=== PATIENT | male | born 2000 | race Two or more races ===

== ENCOUNTER 2021-07-30 15:17 | Emergency (ER) | payer MEDICAID, SELFPAY ==
--- NOTE | ~2021-07-30 | XR_ITS ---
EXAMINATION: XR CHEST CLINICAL INFORMATION: Chest pain COMPARISON: November 13, 2017 TECHNIQUE: Frontal view of the chest was obtained. FINDINGS: No significant abnormality is noted involving the heart, lungs, mediastinum, bony thorax or soft tissues. XR/XR chest 1V IMPRESSION: No acute disease.
[2021-07-30 15:37] VITALS: BP 110/59; PULSE 76; RESP 18; TEMP 36.8; O2SAT 100; BMI 20.9
--- NOTE | 2021-07-30 15:43 | ECG_ITS ---
Test Reason : CHEST PAIN Blood Pressure : / mmHG Vent. Rate : 066 BPM Atrial Rate : 066 BPM P-R Int : 162 ms QRS Dur : 102 ms QT Int : 348 ms P-R-T Axes : 069 044 064 degrees QTc Int : 364 ms Normal sinus rhythm Intra-ventricular conduction delay Otherwise normal ECG Heart rate has increased Referred By: Generic ED Physician Electronically Signed By:CHATA TOWNSEND MD
[2021-07-30 16:34] LABS: MANUAL DIFF FLAG NO
[2021-07-30 16:35] LABS: Basophils Percent Auto 0.7 % (0-2); Eosinophils Absolute Auto 0.1 X10*3/uL (0.0-0.4); Eosinophils Percent Auto 2.2 % (0-4); Hematocrit 37.9 % (42-52); Hemoglobin 12.7 g/dl (14.0-18.0); Imm Gran Abs Auto 0.01 X10*3/uL (0.00-0.03); Imm Gran Pct Auto 0.2 % (0.0-0.4); Lymphocytes Absolute Auto 2.3 X10*3/uL (1.2-4.9); Lymphocytes Percent Auto 50.1 % (20-40); Mean Corpuscular HGB Conc 33.5 g/dl (31.0-36.0); Mean Corpuscular Hemoglobin 31.3 pg (27.0-33.0); Mean Corpuscular Volume 93.3 fL (80-98); Mean Platelet Volume 9.7 fL (9.4-12.4); Monocytes Absolute Auto 0.4 X10*3/uL (0.1-1.2); Monocytes Percent Auto 8.3 % (2-11); Neutrophils Absolute Auto 1.8 X10*3/uL (2.0-8.3); Neutrophils Percent Auto 38.5 % (45-73); Platelet Count 184 X10*3/uL (160-400); Red Blood Count 4.06 X10*6/uL (4.60-5.80); Red Cell Distribution Width 12.7 % (11.0-16.0); White Blood Count 4.6 X10*3/uL (4.8-10.8)
[2021-07-30 16:47] LABS: Anion Gap 12 (12-20); Blood Urea Nitrogen 8 mg/dL (9-16); Calcium 9.5 mg/dL (8.4-10.2); Carbon Dioxide 28 mmol/L (22-29); Chloride 105 mmol/L (96-108); Creatinine Clr Calc Pharmacy 93.4; Estimated Glomerular Filt Rate > 60; Glucose Random 71 mg/dL (60-115); Potassium 3.8 mmol/L (3.3-5.1); Sodium 141 mmol/L (135-145)
[2021-07-30 16:56] LABS: Glucose, Whole Blood 78 mg/dL (60-115)
--- NOTE | 2021-07-30 16:57 | ED.CHESTPAIN ---
HPI - Chest Pain General Chief Complaint: Chest Pain Stated Complaint: dizziness Time Seen by Provider: 07/30/21 18:16 Source: patient Mode of arrival: ambulatory Limitations: no limitations History of Present Illness HPI narrative: 20-year-old male with no past medical history presents to the ED for multiple complaints. Patient states for the past 2 years he has been having intermittent chest pain on the left side without any nausea or shortness of breath. partner states patient has this at least twice per week. She thinks may be due to stress. Patient also states he he works 6 days a week 10 hours began at 04:00 without any breakfast and at that time will have a headache and feels slightly dizzy but will resolve after having some soda. Patient states only eating cookies. Patient states had headache today also without eating much while working since 04:00am and after eating he felt better and headache improved significantly. Patient denies any eye pain or present eye blurry vision. Patient states this past Tuesday when he had the usual headache with lightheaded due to not eating. Patient denies any pleuritic chest pain, swelling of lower extremities, calf pain, coughing up blood, fever, chills, recent long travel, recent surgery, history of blood clots, any estrogen hormonal use. Patient is vaccinated against COVID-19 virus. Patient denies any slurred speech, loss of vision, paralysis of extremities,or facial droop. Related Data Allergies Allergy/AdvReac Type Severity Reaction Status Date / Time No Known Drug Allergies Allergy Mild NONE Verified 07/30/21 15:35 [NO KNOWN DRUG ALLERGIES] Review of Systems Review of Systems: Yes Unobtainable due to mental status Constitutional: Constitutional: Reports as per HPI and Reports no additional constitutional complaints Eyes: Eyes: Reports as per HPI and Reports no additional eye complaints ENT: Reports system reviewed and no additional complaints, except as documented and Reports as per HPI Cardiovascular: Cardiovascular: Reports as per HPI and Reports no additional cardiovascular complaints Respiratory: Respiratory: Reports as per HPI and Reports no additional respiratory complaints Gastrointestinal: Gastrointestinal: Reports as per HPI and Reports no additional gastrointestinal complaints Genitourinary: Genitourinary: Reports no additional male genitourinary complaints and Reports as per HPI Musculoskeletal: Musculoskeletal: Reports no additional musculoskeletal complaints and Reports as per HPI Integumentary/Breasts: Skin/Breast: Reports system reviewed and no additional complaints, except as docu and Reports as per HPI Neurologic: Reports system reviewed and no additional complaints, except as documented and Reports as per HPI Psychiatric: Psychiatric: Reports no additional psychiatric complaints and Reports as per HPI [facility] Past Medical History Medical History (Updated 07/30/21 @ 17:57 by CONNOR Pierre) Acute insomnia Social History Social History Alcohol intake: never Patient Tobacco Use Status: Never used Tobacco Use of substances other than those prescribed or required for medical reasons: No Advance Directives: No Advance Directives Information Provided: Yes Physical Exam Vital Signs: Vital Signs: Last Vital Signs Temp 98.3 F 07/30/21 15:37 Pulse 70 07/30/21 18:29 Resp 16 07/30/21 18:29 BP 113/57 L 07/30/21 18:29 Pulse Ox 100 07/30/21 15:37 Body Mass Index 20.9 Const: General: cooperative, healthy appearing, comfortable, no acute distress, well developed, alert and awake Orientation/consciousness: patient oriented x3 HENMT: Head: Yes normal to inspection, Yes No palpable skull fracture present, Yes normocephalic, Yes atraumatic, No abrasion, No Acrocyanosis present, No Lee's sign, No contusion, No cranial bruits, No hematoma, No laceration, No occipital foramen tenderness, No palpable skull fracture, No raccoon eyes, No scalp lesion, No scalp tenderness, No Temporal artery tenderness present and No periorbital ecchymosis Eyes: Other: negtive photophobia. Negative for erythema of conjunctival or scleral. Negative for clot illness of higher. Patient presently denies any eye pain. Neck: Neck: Yes normal visual inspection, Yes full ROM, Yes no lymphadenopathy, Yes no meningeal signs, Yes trachea midline, Yes supple and No tender Chest: Chest palpation & inspection: normal inspection of the chest and normal palpation of entire chest wall Resp: Effort & Inspection: normal respiratory effort and able to speak in complete sentences Auscultation: clear to auscultation bilaterally Cardio: Jugular venous distension: no JVD Heart sounds: S1 normal heart sound present and S2 normal heart sound present GI: Inspection: Yes normal to inspection and No abdominal wall ecchymosis Palpation (GI): Soft to palpation, not firm, nontender, no guarding and not rigid : General: No CVA tenderness and Yes no CVA tenderness Back/Spine/Pelvis: Back: no CVA tenderness, No CVA tenderness and No back tenderness Skin: General skin exam: no rashes or lesions noted and elasticity normal Neuro: Other: Negative facial droop. Negative slurred speech. All extremities equal strength 5+. [id number] rapid hand movement intact. Negative Romberg. Negative pronator drift. General: patient oriented x3, gait normal, no meningeal signs and CN's II-XI intact bilaterally Cranial nerves: Yes CN's II-XII intact bilaterally Extrem: General: Yes normal to inspection and Yes full ROM Psych: Appearance: grossly normal, well kempt and not disheveled Course Course Course Narrative: Patient was in a rapid medical screening and had medical evaluation. Reevaluation(s) Reevaluation #1: EKG normal. Troponin negative. Chest x-ray normal. Electrolytes are normal. CBC normal. Patient is not hypoglycemic. No indication for head CT scan. Negative for any neuro deficits. Patient presently denies any headache. Not suspecting temporal arteritis, glaucoma, conjunctivitis, or any corneal abrasion. Patient presents not have any eye pain. Patient is safe for discharge. Symptoms due to exertion and stress. Patient given days off informed to follow-up with primary care provider. Suspecting PE. Perc score 0. Heart score 0. Visual acuity 20/20 in both eyes. Time: 17:52 MDM - Chest Pain MDM Narrative Medical decision making narrative: Atypical chest pain. Exertion. Fatigue Lab Data Result diagrams: 07/30/21 16:27 07/30/21 16:27 Labs: Lab Results 07/30/21 07/30/21 07/30/21 Range/Units 16:27 16:27 16:27 WBC 4.6 L (4.8-10.8) X10*3/uL RBC 4.06 L (4.60-5.80) X10*6/uL Hgb 12.7 L (14.0-18.0) g/dl Hct 37.9 L (42-52) % MCV 93.3 (80-98) fL MCH 31.3 (27.0-33.0) pg MCHC 33.5 (31.0-36.0) g/dl RDW 12.7 (11.0-16.0) % Plt Count 184 (160-400) X10*3/uL MPV 9.7 (9.4-12.4) fL Immature Gran % (Auto) 0.2 (0.0-0.4) % Neut % (Auto) 38.5 L (45-73) % Lymph % (Auto) 50.1 H (20-40) % Thayer % (Auto) 8.3 (2-11) % Eos % (Auto) 2.2 (0-4) % Baso % (Auto) 0.7 (0-2) % Lymph # (Auto) 2.3 (1.2-4.9) X10*3/uL Thayer # (Auto) 0.4 (0.1-1.2) X10*3/uL Eos # (Auto) 0.1 (0.0-0.4) X10*3/uL Baso # (Auto) 0.0 (0.0-0.2) X10*3/uL Abs Immat Gran (auto) 0.01 (0.00-0.03) X10*3/uL Absolute Neuts (auto) 1.8 L (2.0-8.3) X10*3/uL Absolute Nucleated RBC 0.000 (0.0-0.012) X10*3/uL Nucleated RBC % (auto) 0.0 (0.0-0.2) /100WBC Sodium 141 (135-145) mmol/L Potassium 3.8 (3.3-5.1) mmol/L Chloride 105 (96-108) mmol/L Carbon Dioxide 28 (22-29) mmol/L Anion Gap 12 (12-20) BUN 8 L (9-16) mg/dL Creatinine 1.13 (0.5-1.4) mg/dL Estim Creat Clear Calc 93.4 Estimated GFR > 60 POC Glucose (60-115) mg/dL Random Glucose 71 (60-115) mg/dL Calcium 9.5 (8.4-10.2) mg/dL Troponin I High Sens < 3.5 (<3.5-35.0) ng/L 07/30/21 Range/Units 16:52 WBC (4.8-10.8) X10*3/uL RBC (4.60-5.80) X10*6/uL Hgb (14.0-18.0) g/dl Hct (42-52) % MCV (80-98) fL MCH (27.0-33.0) pg MCHC (31.0-36.0) g/dl RDW (11.0-16.0) % Plt Count (160-400) X10*3/uL MPV (9.4-12.4) fL Immature Gran % (Auto) (0.0-0.4) % Neut % (Auto) (45-73) % Lymph % (Auto) (20-40) % Thayer % (Auto) (2-11) % Eos % (Auto) (0-4) % Baso % (Auto) (0-2) % Lymph # (Auto) (1.2-4.9) X10*3/uL Thayer # (Auto) (0.1-1.2) X10*3/uL Eos # (Auto) (0.0-0.4) X10*3/uL Baso # (Auto) (0.0-0.2) X10*3/uL Abs Immat Gran (auto) (0.00-0.03) X10*3/uL Absolute Neuts (auto) (2.0-8.3) X10*3/uL Absolute Nucleated RBC (0.0-0.012) X10*3/uL Nucleated RBC % (auto) (0.0-0.2) /100WBC Sodium (135-145) mmol/L Potassium (3.3-5.1) mmol/L Chloride (96-108) mmol/L Carbon Dioxide (22-29) mmol/L Anion Gap (12-20) BUN (9-16) mg/dL Creatinine (0.5-1.4) mg/dL Estim Creat Clear Calc Estimated GFR POC Glucose 78 (60-115) mg/dL Random Glucose (60-115) mg/dL Calcium (8.4-10.2) mg/dL Troponin I High Sens (<3.5-35.0) ng/L ECG Data ECG #1: Interpretation: Normal sinus rhythm. Normal EKG. Ventricular rate 66. DC interval 162. QRS 102. QTC 364. Negative STEMI Discharge Plan Discharge Clinical Impression: Atypical chest pain, Fatigue, Headache Patient Disposition: Home, Self-Care Instructions: Chest Pain (ED), Tension Headache (ED), Fatigue (ED) Additional Instructions: EKG a blood work came back normal and negative for heart attack electrolyte deficiency, or anemia. Chest x-ray negative for pneumonia. Please follow-up with primary care provider. Return to ED for any shortness of breath, coughing up blood, leg swelling, calf pain, fever, chills, abdominal pain, diarrhea, weakness, dizziness, slurred speech, facial droop, paralysis of extremities, loss of vision in the eye, eye pain, change in eye vision, eye redness, worsening headache, chest pain, or any other concerning symptoms. Stand Alone Forms: Work/School Release Interventions: ED Discharge Assessment Last Done: 07/30/21 18:29 Discharge Date/Time: 07/30/21 18:30 Print Language: Sami
[2021-07-30 16:59] LABS: Troponin-I High Sensitivity < 3.5 ng/L (<3.5-35.0)
[2021-07-30 18:29] VITALS: BP 113/57; PULSE 70; RESP 16
== END 2021-07-30 18:30 | disposition home or self-care (01) ==
PROVIDERS: Emergency Provider Emergency Medicine Emergency Medical Services
DX: R07.89 Other chest pain (principal); R53.83 Other fatigue; R51.9 Headache, unspecified
CPT/HCPCS: 36415; 71045; 80048; 82947; 84484; 85025; 93005; 99284

== ENCOUNTER 2022-01-26 16:36 | Outpatient (REF) | payer MEDICAID, SELFPAY ==
--- NOTE | ~2022-01-26 | XR_ITS ---
EXAMINATION: XR CERVICAL SPINE XR THORACIC SPINE XR LUMBAR SPINE CLINICAL INFORMATION: Pain. Worsening radiculopathy. COMPARISON: None TECHNIQUE: Cervical spine 5 views. Thoracic spine 3 views. Lumbar spine 5 views. FINDINGS: CERVICAL SPINE: There is normal cervical lordosis. The vertebral heights, alignment and disc heights are normal. The neural foramina are patent bilaterally. No visible acute fracture, dislocation or subluxation seen. The prevertebral and paravertebral soft tissues are normal. Incidental finding of bilateral C7 cervical ribs. THORACIC SPINE: There is normal thoracic kyphosis. The vertebral heights, alignment and disc heights are normal. There is no visible acute fracture, dislocation or lytic process seen. The paravertebral soft tissues are normal. LUMBAR SPINE: There is normal lumbar lordosis with minimal dextroscoliosis mid dorsal spine. The vertebral heights and alignment are preserved. The disc heights are preserved. No visible acute fracture, dislocation seen. SI joints are symmetrical. No lytic or sclerotic process seen. XR/XR thoracic spine 3V IMPRESSION: Unremarkable cervical spine exam. Unremarkable dorsal spine exam. Mild dextroscoliosis dorsal spine. No lytic or sclerotic process.
--- NOTE | ~2022-01-26 | XR_ITS ---
EXAMINATION: XR CERVICAL SPINE XR THORACIC SPINE XR LUMBAR SPINE CLINICAL INFORMATION: Pain. Worsening radiculopathy. COMPARISON: None TECHNIQUE: Cervical spine 5 views. Thoracic spine 3 views. Lumbar spine 5 views. FINDINGS: CERVICAL SPINE: There is normal cervical lordosis. The vertebral heights, alignment and disc heights are normal. The neural foramina are patent bilaterally. No visible acute fracture, dislocation or subluxation seen. The prevertebral and paravertebral soft tissues are normal. Incidental finding of bilateral C7 cervical ribs. THORACIC SPINE: There is normal thoracic kyphosis. The vertebral heights, alignment and disc heights are normal. There is no visible acute fracture, dislocation or lytic process seen. The paravertebral soft tissues are normal. LUMBAR SPINE: There is normal lumbar lordosis with minimal dextroscoliosis mid dorsal spine. The vertebral heights and alignment are preserved. The disc heights are preserved. No visible acute fracture, dislocation seen. SI joints are symmetrical. No lytic or sclerotic process seen. XR/XR cervical spine 4V IMPRESSION: Unremarkable cervical spine exam. Unremarkable dorsal spine exam. Mild dextroscoliosis dorsal spine. No lytic or sclerotic process.
--- NOTE | ~2022-01-26 | XR_ITS ---
EXAMINATION: XR CERVICAL SPINE XR THORACIC SPINE XR LUMBAR SPINE CLINICAL INFORMATION: Pain. Worsening radiculopathy. COMPARISON: None TECHNIQUE: Cervical spine 5 views. Thoracic spine 3 views. Lumbar spine 5 views. FINDINGS: CERVICAL SPINE: There is normal cervical lordosis. The vertebral heights, alignment and disc heights are normal. The neural foramina are patent bilaterally. No visible acute fracture, dislocation or subluxation seen. The prevertebral and paravertebral soft tissues are normal. Incidental finding of bilateral C7 cervical ribs. THORACIC SPINE: There is normal thoracic kyphosis. The vertebral heights, alignment and disc heights are normal. There is no visible acute fracture, dislocation or lytic process seen. The paravertebral soft tissues are normal. LUMBAR SPINE: There is normal lumbar lordosis with minimal dextroscoliosis mid dorsal spine. The vertebral heights and alignment are preserved. The disc heights are preserved. No visible acute fracture, dislocation seen. SI joints are symmetrical. No lytic or sclerotic process seen. XR/XR lumbar spine 4V min IMPRESSION: Unremarkable cervical spine exam. Unremarkable dorsal spine exam. Mild dextroscoliosis dorsal spine. No lytic or sclerotic process.
== END 2022-01-26 16:37 | disposition home or self-care (01) ==
LOC: HO.XRAY 16:36
PROVIDERS: Absent Provider Internal Medicine; PCP Internal Medicine; Visit Provider Emergency Medicine
DX: M41.125 Adolescent idiopathic scoliosis, thoracolumbar region (principal)
CPT/HCPCS: 72050; 72072; 72110

== ENCOUNTER 2022-02-08 18:11 | Emergency (ER) | payer MEDICAID, SELFPAY ==
[2022-02-08 19:19] VITALS: BP 146/82; PULSE 75; RESP 16; TEMP 36.6; O2SAT 98; BMI 21.1
--- NOTE | 2022-02-08 21:25 | ED.BACK ---
HPI - Back Pain/Injury General Chief Complaint: Back Pain/Injury Stated Complaint: Back pain Time Seen by Provider: 02/08/22 21:25 Source: patient Mode of arrival: ambulatory Limitations: no limitations History of Present Illness HPI Narrative: Patient is a 21 year old male presenting to the emergency department today with mid back pain. Patient states that he was recently diagnosed with scoliosis and is having mid back pain. Patient states that he works a very strenuous job with heavy lifting. Patient denies any dizziness, lightheadedness, abdominal pain, nausea, vomiting, fever, chills, blurry vision, double vision, loss of vision, chest pain, difficulty breathing, shortness of breath, night sweats, pain with urination, increased urinary frequency, increased urinary urgency, blood in his urine or stool, syncope or a near syncopal episode, recent trauma or falls, bowel incontinence, bladder incontinence, bowel retention, bladder retention, or any other complaints at this time. MD elicited complaint: back pain Pertinent past history: prior back pain Onset (ago): day(s) Timing: intermittent Severity: mild Pain scale (0-10): 3 Similar Symptoms Previously: Yes Quality: dull Location: thoracic spine Radiation: none Exacerbating factors: none Relieving factors: none Associated symptoms: denies other symptoms Related Data Previous Rx's Medication Instructions Recorded cyclobenzaprine 10 mg tablet 10 mg PO TID PRN 7 Days #21 tab 02/08/22 Allergies Allergy/AdvReac Type Severity Reaction Status Date / Time No Known Drug Allergies Allergy Mild NONE Verified 07/30/21 15:35 [NO KNOWN DRUG ALLERGIES] Review of Systems Constitutional: Constitutional: Reports no additional constitutional complaints, Denies chills, Denies fever(s) and Denies night sweats Eyes: Eyes: Reports no additional eye complaints, Denies blurry vision, Denies change in vision, Denies diplopia, Denies eye discharge, Denies loss of vision and Denies eye pain ENT: Denies dizziness Cardiovascular: Cardiovascular: Reports no additional cardiovascular complaints, Denies chest pain, Denies lightheadedness, Denies Loss of Consciousness and Denies dyspnea Respiratory: Respiratory: Reports no additional respiratory complaints and Denies dyspnea Gastrointestinal: Gastrointestinal: Reports no additional gastrointestinal complaints, Denies abdominal pain, Denies melena, Denies hematochezia, Denies change in bowel habits and Denies change in stool character Genitourinary: Genitourinary: Reports no additional male genitourinary complaints, Denies hematuria, Denies oliguria, Denies difficulty urinating, Denies dysuria, Denies urinary frequency, Denies urinary hesitancy, Denies urinary incontinence and Denies urinary urgency Musculoskeletal: Musculoskeletal: Reports no additional musculoskeletal complaints, Reports back pain, Denies numbness and Denies tingling Neurologic: Denies dizziness, Denies loss of vision, Denies numbness and Denies tingling Psychiatric: Psychiatric: Reports no additional psychiatric complaints Endocrine: Endocrine: Reports no additional endocrine complaints Hematologic/Lymphatic: Hematologic/Lymphatic: Reports no additional hematologic/lymphatic complaints Allergic/Immunologic: Allergic/Immunologic: Reports no additional allergic/immunologic complaints PMFSH Past Medical History Attestation statement: The following information was validated with the patient. Source: old records reviewed Medical History Acute insomnia Social History Social History Alcohol intake: never Patient Tobacco Use Status: Never used Tobacco Advance Directives: No Advance Directives Information Provided: No Physical Exam Vital Signs: Vital Signs: Last Vital Signs Temp 97.8 F 02/08/22 19:19 Pulse 75 02/08/22 19:19 Resp 16 02/08/22 19:19 BP 146/82 H 02/08/22 19:19 Pulse Ox 98 02/08/22 19:19 BMI result Body Mass Index 21.1 Const: General: cooperative, no acute distress, alert and awake Nutritional Appearance: well nourished Orientation/consciousness: patient oriented x3 Limitations: no limitations HEENT: Head: Yes normal to inspection and Yes atraumatic Ears: hearing grossly normal bilaterally and external ears normal General nose exam: Normal external nose present, no nasal discharge noted and no epistaxis Face and sinus: Yes normal facial exam, No abrasion and No laceration Mouth: Normal oral and palatal mucosa present, no drooling and no muffled voice Eyes: General: appearance normal, both eyes and all related structures Periorbital: periorbital findings normal Eyelids: Yes eyelids normal Conjunctivae: conjunctivae normal Pupils: Equal, round and reactive pupils present EOM: EOMs intact bilaterally Neck: Neck: Yes normal visual inspection, Yes full ROM and Yes no lymphadenopathy Chest: Chest palpation & inspection: normal inspection of the chest Resp: Effort & Inspection: normal respiratory effort and able to speak in complete sentences Auscultation: clear to auscultation bilaterally Cardio: Rate: regular rate Rhythm: regular rhythm GI: Inspection: Yes normal to inspection : General: Yes no CVA tenderness Back/Spine/Pelvis: Back: no CVA tenderness Cervical Spine: normal cervical lordosis and cervical ROM normal Thoracic/Lumbar Spine: thoracic and lumbar spine normal to inspection and thoraco-lumbar ROM normal Pelvis: no pain with anterior-posterior compression Neuro: General: patient oriented x3 and moves all extremities Cranial nerves: Yes Equal, round and reactive pupils present Cognition (Neuro): normal cognition Motor exam (neuro): 5/5 motor strength present throughout Sensory Exam: Normal double simultaneous stimulation for sensation Coordination: [id number] test normal Extrem: General: Yes normal to inspection, Yes full ROM and Yes capillary refill normal Psych: Appearance: grossly normal Mental Status: mental status grossly normal Affect: normal affect Attitude: cooperative Thought process: Normal thought process present Thought content: Normal thought content present Insight: Good insight present (Psych) MDM - Back Pain/Injury MDM Narrative Medical decision making narrative: Patient is a 21 year old male presenting to the emergency department today with thoracic back pain. Patient's physical exam was unremarkable. I explained my physical exam findings to the patient. I answered all questions asked by the patient. Patient received PO Flexeril and IM Toradol which he stated helped his symptoms significantly. I stressed the importance of the patient taking his medication as prescribed. I stressed the importance of the patient following up with his primary care provider and an orthopedist. I stressed the importance of the patient returning to the emergency department immediately if his symptoms were to worsen or if he were to develop any dizziness, shortness of breath, difficulty breathing, chest pain, blurry vision, loss of vision, nausea, vomiting, abdominal pain, fever, chills, back pain, or any other complaints. Patient verbalized agreement and understanding with this treatment plan and discharge. Differential Diagnosis Differential diagnosis: Likely thoracic back pain Medical Records Attestation: I reviewed the patient's medical records. Discharge Plan Discharge Clinical Impression: Thoracic back pain Patient Disposition: Home, Self-Care Instructions: Back Pain (ED) Additional Instructions: Follow up with your primary care provider. Return to the emergency department immediately if your symptoms worsen or if you develop any dizziness, shortness of breath, difficulty breathing, chest pain, blurry vision, loss of vision, nausea, vomiting, abdominal pain, fever, chills, back pain, or any other complaints. Prescriptions: New cyclobenzaprine 10 mg tablet 10 mg PO TID PRN (Reason: muscle spasm) 7 Days Qty: 21 0RF [place]errals: [facility] [place]Provider Group] (Follow up with an orthopedist. ) Jemima Prado NP [Primary Care Provider] - (Follow up with your PCP. ) Stand Alone Forms: Work/School Release Interventions: ED Discharge Assessment Last Done: 02/08/22 21:59 Discharge Date/Time: 02/08/22 22:02 Print Language: Pashto
[2022-02-08] MEDS: Cyclobenzaprine HCl 5 MG TABLET PO (21:54)
== END 2022-02-08 22:02 | disposition home or self-care (01) ==
PROVIDERS: Emergency Provider Internal Medicine; PCP Emergency Medicine
DX: M54.6 Pain in thoracic spine (principal)
CPT/HCPCS: 96372; 99284

== ENCOUNTER 2022-04-25 20:39 | Emergency (ER) | payer MEDICAID, SELFPAY ==
--- NOTE | ~2022-04-25 | XR_ITS ---
EXAMINATION: XR HAND, RIGHT CLINICAL INFORMATION: Pain/infection COMPARISON: None TECHNIQUE: PA, lateral, and oblique views of the right hand. FINDINGS: The bones and soft tissues are normal aside from presence of soft tissue swelling dorsum of the third finger overlying the distal phalanx. No fracture or underlying bony lesion. Alignment is anatomic. Joint spaces are maintained. No erosions or soft tissue calcifications. XR/XR hand RT min 3V IMPRESSION: Soft tissue swelling overlying the distal phalanx of the middle finger. No osseous abnormality.
[2022-04-25 20:54] VITALS: BP 128/76; PULSE 87; RESP 18; TEMP 37.1; O2SAT 99; BMI 21.1
--- NOTE | 2022-04-25 23:34 | ED.SKABFB ---
HPI - Skin/Abscess/Foreign Bdy General Chief complaint: Skin/Abscess/Foreign Body Stated complaint: Finger Infection R Hand Time Seen by Provider: 04/25/22 23:24 Source: patient Mode of arrival: ambulatory Limitations: no limitations History of Present Illness HPI narrative: Patient is a 21 year old male presenting to the emergency department today with an infected left middle finger. Patient states that he noticed some swelling starting by his nail of his left middle finger and it has not gotten better. Patient denies any dizziness, lightheadedness, abdominal pain, nausea, vomiting, fever, chills, blurry vision, double vision, loss of vision, chest pain, difficulty breathing, shortness of breath, back pain, night sweats, pain with urination, increased urinary frequency, increased urinary urgency, blood in his urine or stool, syncope or a near syncopal episode, recent trauma or falls, bowel incontinence, bladder incontinence, bowel retention, bladder retention, or any other complaints at this time. MD complaint: abscess/boil Onset (ago): day(s) (3) Tetanus up to date: yes Severity: mild Severity scale (1-10): 3 Quality: dull Pain Consistency: constant Relieving factors: none Exacerbating factors: none Context: none Associated symptoms: denies other symptoms Treatments prior to arrival: none Related Data Previous Rx's Medication Instructions Recorded cyclobenzaprine 10 mg tablet 10 mg PO TID PRN muscle spasm 7 02/08/22 days #21 tabs cephalexin 500 mg capsule 500 mg PO Q6H 7 days #28 caps 04/25/22 Allergies Allergy/AdvReac Type Severity Reaction Status Date / Time No Known Drug Allergies Allergy Mild NONE Verified 04/25/22 20:54 [NO KNOWN DRUG ALLERGIES] Review of Systems Constitutional: Constitutional: Reports no additional constitutional complaints, Denies chills, Denies fever(s) and Denies night sweats Eyes: Eyes: Reports no additional eye complaints, Denies blurry vision, Denies change in vision, Denies diplopia, Denies eye discharge, Denies loss of vision and Denies eye pain ENT: Denies dizziness Cardiovascular: Cardiovascular: Reports no additional cardiovascular complaints, Denies chest pain, Denies lightheadedness, Denies Loss of Consciousness and Denies dyspnea Respiratory: Respiratory: Reports no additional respiratory complaints and Denies dyspnea Gastrointestinal: Gastrointestinal: Reports no additional gastrointestinal complaints, Denies abdominal pain, Denies melena, Denies hematochezia, Denies change in bowel habits and Denies change in stool character Genitourinary: Genitourinary: Reports no additional male genitourinary complaints, Denies hematuria, Denies oliguria, Denies difficulty urinating, Denies dysuria, Denies urinary frequency, Denies urinary hesitancy, Denies urinary incontinence and Denies urinary urgency Musculoskeletal: Musculoskeletal: Reports no additional musculoskeletal complaints, Denies numbness and Denies tingling Comments: swelling to the left middle finger Neurologic: Denies dizziness, Denies loss of vision, Denies numbness and Denies tingling Psychiatric: Psychiatric: Reports no additional psychiatric complaints Endocrine: Endocrine: Reports no additional endocrine complaints Hematologic/Lymphatic: Hematologic/Lymphatic: Reports no additional hematologic/lymphatic complaints Allergic/Immunologic: Allergic/Immunologic: Reports no additional allergic/immunologic complaints [facility] Past Medical History Attestation statement: The following information was validated with the patient. Source: old records reviewed Medical History Acute insomnia Social History Social History Alcohol intake: never Patient Tobacco Use Status: Never used Tobacco Advance Directives: No Advance Directives Information Provided: Yes Physical Exam Vital Signs: Vital Signs: Last Vital Signs Temp 98.7 F 04/25/22 20:54 Pulse 87 04/25/22 20:54 Resp 18 04/25/22 20:54 BP 128/76 04/25/22 20:54 Pulse Ox 99 04/25/22 20:54 O2 Del Method 04/25/22 20:54 BMI result Body Mass Index 21.1 Const: General: cooperative, no acute distress, alert and awake Nutritional Appearance: well nourished Orientation/consciousness: patient oriented x3 Limitations: no limitations HEENT: Head: Yes normal to inspection and Yes atraumatic Ears: hearing grossly normal bilaterally and external ears normal General nose exam: Normal external nose present, no nasal discharge noted and no epistaxis Face and sinus: Yes normal facial exam, No abrasion and No laceration Mouth: Normal oral and palatal mucosa present, no drooling and no muffled voice Eyes: General: appearance normal, both eyes and all related structures Periorbital: periorbital findings normal Eyelids: Yes eyelids normal Conjunctivae: conjunctivae normal Pupils: Equal, round and reactive pupils present EOM: EOMs intact bilaterally Neck: Neck: Yes normal visual inspection, Yes full ROM and Yes no lymphadenopathy Chest: Chest palpation & inspection: normal inspection of the chest Resp: Effort & Inspection: normal respiratory effort and able to speak in complete sentences Auscultation: clear to auscultation bilaterally Cardio: Rate: regular rate Rhythm: regular rhythm GI: Inspection: Yes normal to inspection Neuro: General: patient oriented x3 and moves all extremities Cranial nerves: Yes Equal, round and reactive pupils present Cognition (Neuro): normal cognition Motor exam (neuro): 5/5 motor strength present throughout Sensory Exam: Normal double simultaneous stimulation for sensation Coordination: [id number] test normal Extrem: Other: swelling to the dorsal aspect of the left middle finger near the nail bed, consistent with a paronychia General: Yes full ROM and Yes capillary refill normal Psych: Appearance: grossly normal Mental Status: mental status grossly normal Affect: normal affect Attitude: cooperative Thought process: Normal thought process present Thought content: Normal thought content present Insight: Good insight present (Psych) MDM - Skin/Abscess/Foreign Bdy MDM Narrative Medical decision making narrative: Patient is a 21 year old male presenting to the emergency department today with swelling to his left middle finger. Patient's physical exam showed a paronychea of the left middle finger. I explained my physical exam findings to the patient. I answered all questions asked by the patient. Patient's finger was incised and drained, without incident. I stressed the importance of the patient taking his medication as prescribed. I stressed the importance of the patient following up with his primary care provider. I stressed the importance of the patient returning to the emergency department immediately if his symptoms were to worsen or if he were to develop any dizziness, shortness of breath, difficulty breathing, chest pain, blurry vision, loss of vision, nausea, vomiting, abdominal pain, fever, chills, back pain, or any other complaints. Patient verbalized agreement and understanding with this treatment plan and discharge. Differential Diagnosis Differential diagnosis: Likely abscess of skin or subcutaneous tissue Medical Records Attestation: I reviewed the patient's medical records. Procedures Abscess I/D Site: other (middle finger) Side (if applicable): left Sedation/analgesia: none Technique: needle aspiration Amount of fluid expressed (mL): 10 Sent for culture/gram staining?: No Packing used?: none Discharge Plan Discharge Clinical Impression: Acute paronychia of finger Patient Disposition: Home, Self-Care Instructions: Paronychia (ED) Additional Instructions: Follow up with your primary care provider. Return to the emergency department immediately if your symptoms worsen or if you develop any dizziness, shortness of breath, difficulty breathing, chest pain, blurry vision, loss of vision, nausea, vomiting, abdominal pain, fever, chills, back pain, or any other complaints. Prescriptions: New cephalexin 500 mg capsule 500 mg PO Q6H 7 Days Qty: 28 0RF No Action cyclobenzaprine 10 mg tablet 10 mg PO TID PRN (Reason: muscle spasm) 7 Days Qty: 21 0RF Referrals: [facility] [Primary Care Provider] - Stand Alone Forms: Work/School Release Interventions: ED Discharge Assessment Last Done: 04/25/22 23:49 Discharge Date/Time: 04/25/22 23:50 Print Language: Kyrgyz
== END 2022-04-25 23:50 | disposition home or self-care (01) ==
PROVIDERS: Emergency Provider Internal Medicine
DX: L03.012 Cellulitis of left finger (principal); Z79.899 Other long term (current) drug therapy
CPT/HCPCS: 10060; 73130; 99282; 99283

== ENCOUNTER 2022-04-29 16:08 | Emergency (ER) | payer MEDICAID, SELFPAY ==
[2022-04-29 17:42] VITALS: BP 108/62; PULSE 83; RESP 16; TEMP 37; O2SAT 100; BMI 21.1
--- NOTE | 2022-04-29 20:44 | ED.EXTPRO ---
HPI - Extremity Problem General Chief complaint: Extremity Problem Stated complaint: finger infection Time Seen by Provider: 04/29/22 20:44 Source: patient Mode of arrival: ambulatory Limitations: no limitations History of Present Illness HPI Narrative: 21-year-old male presenting to the emergency department with complaints of pain to the right middle finger times a week worsening. Patient tells me he was seen here in the emergency department was told he had an infected finger was put on antibiotics, Keflex 500 mg q.6 hours, patient tells me he has been trying to take this as prescribed however he has for gotten a few doses. He reports that his finger appears worse and hurts. He tells me if he does not touch it it does not her however if he touches it hurts. He reports his fingers red and warm. He tells me that yesterday he tried to drain it at home with a sterile needle, he notes that a large amount of blood came out from the area. 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 Patient denies fevers, chills, numbness, tingling, chest pain, shortness of breath, nausea, vomiting, abdominal pain. MD Complaint: extremity pain and extremity swelling Onset (ago): week(s) (1) Pain Consistency: constant Location: right Quality: burning and constant Radiation: none Relieving factors: nothing Exacerbating factors: palpation Associated symptoms: denies other symptoms Related Data Previous Rx's Medication Instructions Recorded cyclobenzaprine 10 mg tablet 10 mg PO TID PRN muscle spasm 7 02/08/22 days #21 tabs cephalexin 500 mg capsule 500 mg PO Q6H 7 days #28 caps 04/25/22 doxycycline hyclate 100 mg capsule 100 mg PO BID 10 days #20 caps 04/29/22 Allergies Allergy/AdvReac Type Severity Reaction Status Date / Time No Known Drug Allergies Allergy Mild NONE Verified 04/29/22 17:45 [NO KNOWN DRUG ALLERGIES] Review of Systems Review of Systems: Constitutional : No Fever, No Chills, Cardiovascular : No Chest Pain, No SOB Respiratory : No Dyspnea Gastrointestinal : No abdominal pain Musculoskeletal : + Joint Swelling Skin : No rash, No skin laceration Neuro : No Weakness, No Numbness Psych : No SI/HI Yes all other systems are reviewed and are negative PMFSH Past Medical History Medical History Acute insomnia Social History Social History Alcohol intake: never Patient Tobacco Use Status: Never used Tobacco Advance Directives: No Advance Directives Information Provided: No Physical Exam Vital Signs: Vital Signs: Last Vital Signs Temp 98.6 F 04/29/22 17:42 Pulse 83 04/29/22 17:42 Resp 16 04/29/22 17:42 BP 108/62 04/29/22 17:42 Pulse Ox 100 04/29/22 17:42 O2 Del Method 04/29/22 17:42 BMI result Body Mass Index 21.1 VSS Appearance: Alert.? Oriented X3.? No acute distress.? Head: Normocephalic, atraumatic, no step-offs or deformities Eyes: Pupils equal, round and reactive to light.? CVS: Normal heart rate and rhythm.? Pulses normal.? Respiratory: No respiratory distress.? Breath sounds normal.? Abdomen: Soft and nontender.? Skin: Skin warm and dry.? Normal skin color.? Normal skin turgor.?+ paronychia to the right middle finger Extremities: No lower extremity edema.? No calf ttp. 5/5 strength to bilateral upper and lower extremities Neuro: Oriented X 3.? No motor deficit.? No sensory deficit. CN 2-12 intact Course Reevaluation(s) Reevaluation #1: A dressing was applied to the area, patient sitting up. Educated on the signs and symptoms and when to return. Comfortable discharge home with strict return precautions Time: 20:50 MDM - Extremity (Nontraumatic) MDM Narrative Medical decision making narrative: 2021 21 yo m presenting w/ worsening paronychia. Physical exam significant for right middle finger paronychia. A small needle was used to drain it in the area, serosanguineous fluid about 4 cc removed from the area. Patient tolerated procedure well. No signs of septic joint, tenosynovitis, unlikely herpetic mauri or felon. Plan at this time is to add doxycycline to patient's antibiotic regimen. A Xeroform dressing will be applied to the area, advised patient to return with new or worsening symptoms and follow-up with his primary care provider. Medical Records Attestation: I reviewed the patient's medical records. Lab Data Attestation: I reviewed the patient's lab results. Critical Care Time Critical Care Time Critical Care Time: No Discharge Plan Discharge Clinical Impression: Paronychia of finger Patient Disposition: Home, Self-Care Instructions: Paronychia (ED), Cellulitis (ED) Additional Instructions: Take your medications as prescribed. If you were prescribed antibiotics today, it is important that you take your medication to their entirety, do not skip any doses, do not finish them early. Follow-up with your primary care provider this week. Return to the emergency department with new or worsening symptoms. Such as fevers, chills, chest pain, shortness of breath, nausea, vomiting, dizziness, headache, vision changes, lethargy In case of emergency call 911 Soak this finger in Epsom salt. Take both antibiotics prescribed to you, Keflex and doxycycline. Prescriptions: New doxycycline hyclate 100 mg capsule 100 mg PO BID 10 Days Qty: 20 0RF No Action cyclobenzaprine 10 mg tablet 10 mg PO TID PRN (Reason: muscle spasm) 7 Days Qty: 21 0RF cephalexin 500 mg capsule 500 mg PO Q6H 7 Days Qty: 28 0RF Referrals: Physician,Unknown J [Primary Care Provider] - 2 days Stand Alone Forms: Work/School Release
== END 2022-04-29 21:46 | disposition home or self-care (01) ==
PROVIDERS: Emergency Provider Emergency Medicine
DX: L03.011 Cellulitis of right finger (principal); Z79.899 Other long term (current) drug therapy
CPT/HCPCS: 10060; 99282; 99283

== ENCOUNTER 2022-07-19 07:05 | Outpatient (REF) | payer MEDICAID, SELFPAY ==
[2022-07-19 08:12] LABS: COVID-19 Test Positive (Negative)
== END 2022-07-19 07:06 | disposition home or self-care (01) ==
LOC: HO.LAB 07:05
PROVIDERS: Visit Provider Internal Medicine
DX: Z20.822 Contact with and (suspected) exposure to COVID-19 (principal)
CPT/HCPCS: 87635; C9803

== ENCOUNTER 2023-08-22 10:11 | Outpatient (REF) | payer MEDICAID, SELFPAY ==
[2023-08-22 11:46] LABS: Hematocrit 39.6 % (42.0-52.0); Hemoglobin 13.3 g/dl (14.0-18.0); Mean Corpuscular HGB Conc 33.6 g/dl (31.0-36.0); Mean Corpuscular Hemoglobin 30.9 pg (27.0-33.0); Mean Corpuscular Volume 91.9 fL (80.0-98.0); Mean Platelet Volume 10.6 fL (9.4-12.4); Platelet Count 199 X10*3/uL (160-400); Red Blood Count 4.31 X10*6/uL (4.60-5.80); Red Cell Distribution Width 12.7 % (11.0-16.0); White Blood Count 4.1 X10*3/uL (4.8-10.8)
[2023-08-22 11:50] LABS: Estimated Average Glucose 105 mg/dL; Hemoglobin A1c % 5.3 % (<6.0)
[2023-08-22 12:30] LABS: TSH reflex Free T4 0.86 uIU/mL (0.32-4.0)
[2023-08-22 12:32] LABS: Anion Gap 9 (12-20)
[2023-08-22 12:37] LABS: Alanine Aminotransferase 16 U/L (0-40); Albumin Level 4.6 g/dL (3.5-5.0); Alkaline Phosphatase 62 U/L (39-117); Aspartate Amino Transferase 19 U/L (5-37); Blood Urea Nitrogen 10 mg/dL (9-16); Calcium 9.2 mg/dL (8.4-10.2); Carbon Dioxide 29 mmol/L (22-29); Chloride 106 mmol/L (96-108); Cholesterol 133 mg/dL (<200); Estimated Glomerular Filt Rate > 60; Glucose Random 90 mg/dL (60-115); HDL Cholesterol 48 mg/dL (>40); LDL Cholesterol Calculated 76 mg/dL (<100); Potassium 3.8 mmol/L (3.3-5.1); Sodium 140 mmol/L (135-145); Total Protein 7.5 g/dL (6.5-8.0); Triglycerides 48 mg/dL (<150)
[2023-08-22 12:57] LABS: CT PCR NOT DETECTED (Not Detect.); NG PCR NOT DETECTED (Not Detect.)
[2023-08-23 03:57] LABS: Syphilis Screen Nonreactive (Nonreactive)
[2023-08-23 04:03] LABS: HBsAGNum1 0.39 S/CO (0.00-0.99); Hepatitis B Surface Antigen Negative (Negative)
[2023-08-23 04:05] LABS: HBS Num1 0.59 mIU/mL (0-7.99); HBc Num1 0.07 S/CO (0.00-0.79); HIV AB/AG Nonreactive (Nonreactive); HIV Num 1 0.06 S/CO (0.00-0.99); Hepatitis B Core Antibody Nonreactive (Nonreactive); ~HepC Num1 0.18 S/CO (0.00-0.79); ~Hepatitis B Surface Antibody NONREACTIVE (Nonreactive); ~Hepatitis C Antibody Nonreactive (Nonreactive)
== END 2023-08-22 10:12 | disposition home or self-care (01) ==
LOC: HO.HHCL 10:11
PROVIDERS: Visit Provider Student in an Organized Health Care Education/Training Program
DX: Z00.00 Encounter for general adult medical examination without abnormal findings (principal)
CPT/HCPCS: 0353U; 36415; 80053; 80061; 83036; 84443; 85027; 86704; 86706; 86780; 86803; 87340; 87389

== ENCOUNTER 2024-01-24 15:59 | Outpatient (REF) | payer MEDICAID, SELFPAY ==
[2024-01-24 17:33] LABS: MANUAL DIFF FLAG NO
[2024-01-24 17:44] LABS: Basophils Percent Auto 0.6 % (0-2); Eosinophils Absolute Auto 0.1 X10*3/uL (0.0-0.4); Eosinophils Percent Auto 3.4 % (0-4); Hematocrit 41.3 % (42.0-52.0); Hemoglobin 13.8 g/dl (14.0-18.0); Lymphocytes Absolute Auto 1.8 X10*3/uL (1.2-4.9); Lymphocytes Percent Auto 51.3 % (20-40); Mean Corpuscular HGB Conc 33.4 g/dl (31.0-36.0); Mean Corpuscular Volume 92.8 fL (80.0-98.0); Mean Platelet Volume 11.2 fL (9.4-12.4); Monocytes Absolute Auto 0.3 X10*3/uL (0.1-1.2); Monocytes Percent Auto 8.5 % (2-11); Neutrophils Absolute Auto 1.3 x10*3/uL (2.0-8.3); Neutrophils Percent Auto 36.2 % (45-73); Platelet Count 178 X10*3/uL (160-400); Red Blood Count 4.45 X10*6/uL (4.60-5.80); Red Cell Distribution Width 12.8 % (11.0-16.0); White Blood Count 3.5 X10*3/uL (4.8-10.8)
[2024-01-24 17:53] LABS: Iron 70 mcg/dL (45-160); Percent Iron Saturation 29 % (15-50); Total Iron Binding Capacity 241 mcg/dL (228-428); Unsaturated Iron Binding 171 ug/dL
[2024-01-24 18:07] LABS: Ferritin 118 ng/mL (20-250)
[2024-01-24 18:21] LABS: Folate 10.3 ng/mL (> or = 4.0); Vitamin B12 299 pg/mL (200-900)
== END 2024-01-24 16:00 | disposition home or self-care (01) ==
LOC: HO.HHCL 15:59
PROVIDERS: Visit Provider Student in an Organized Health Care Education/Training Program
DX: D64.9 Anemia, unspecified (principal)
CPT/HCPCS: 36415; 82607; 82728; 82746; 83540; 85025

== ENCOUNTER 2024-05-09 15:59 | Emergency (ER) | payer OTHER, SELFPAY ==
--- NOTE | ~2024-05-09 | XR_ITS ---
EXAMINATION: XR CHEST CLINICAL INFORMATION: Cough and chest pain. COMPARISON: 07/30/2021 TECHNIQUE: 2 views of the chest were obtained. FINDINGS: The lungs are well expanded. No focal consolidation. No pleural effusion. Cardiac silhouette is unchanged. XR/XR chest 2V IMPRESSION: No acute abnormality.
--- NOTE | 2024-05-09 16:01 | ECG_ITS ---
Test Reason : epigastric pain Blood Pressure : / mmHG Vent. Rate : 091 BPM Atrial Rate : 091 BPM P-R Int : 128 ms QRS Dur : 094 ms QT Int : 320 ms P-R-T Axes : 070 030 047 degrees QTc Int : 393 ms Normal sinus rhythm Normal ECG When compared to the previous EKG of No significant changes seen Referred By: Barb Daniel Electronically Signed By:TRACIE DIXON MD
[2024-05-09 16:02] VITALS: BP 113/61; PULSE 102; RESP 20; TEMP 38.5; O2SAT 99; BMI 23.6
--- NOTE | 2024-05-09 16:03 | ED.GENADULT ---
HPI - General Adult General Chief complaint: Upper Respiratory Symptoms Stated complaint: Epigastric pain, body pain, loss of appetite Time Seen by Provider: 05/09/24 17:25 Source: patient Mode of arrival: ambulatory Limitations: no limitations History of Present Illness ED Provider: Dr. Ollie Robb HPI narrative: 23-year-old male no known past medical history who presents emergency weekend but throat pain down into his chest was cleaning with bleach history and thought it may have caused his headache he describes some burning he is speaking in clear full sentences he has no history of asthma denies any falls or injuries he states he was initially vaccinated for COVID but has not been recently. Related Data Previous Rx's ?Medication ?Instructions ?Recorded cyclobenzaprine 10 mg tablet 10 mg PO TID PRN muscle spasm 7 02/08/22 days #21 tabs cephalexin 500 mg capsule 500 mg PO Q6H 7 days #28 caps 04/25/22 doxycycline hyclate 100 mg capsule 100 mg PO BID 10 days #20 caps 04/29/22 acetaminophen 325 mg tablet 325 mg PO QID PRN pain #90 tabs 05/09/24 (Tylenol) benzonatate 100 mg capsule 100 mg PO BID PRN cough #20 caps 05/09/24 ibuprofen 400 mg tablet 400 mg PO Q6H PRN Pain #60 tabs 05/09/24 Allergies Allergy/AdvReac Type Severity Reaction Status Date / Time No Known Drug Allergies Allergy Mild NONE Verified 05/09/24 16:05 [NO KNOWN DRUG ALLERGIES] Review of Systems Review of Systems: Review of systems: General: Patient denies any fever chills recent illness or falls Musculoskeletal: Body aches Denies back painor other injuries HEENT: Headache, sore throat runny nose, no ear pain Respiratory: Cough denies shortness of breath, Cardiovascular: no chest pain or palpitations : denies dysuria, frequency Abdomen: no nausea vomiting denies abdominal pain Extremities: no swelling, no pain Skin: no diaphoresis Yes all other systems are reviewed and are negative [facility] Past Medical History Medical History Acute insomnia Social History Social History Alcohol intake: never Patient Tobacco Use Status: Never used Tobacco Advance Directives: No Advance Directives Information Provided: No Physical Exam ED Vital Signs: Vital Signs - 24 hr 05/09/24 16:02 Temperature 101.3 F H Pulse Rate 102 H Respiratory Rate 20 Blood Pressure 113/61 Pulse Oximetry 99 Oxygen Delivery Method Room Air BMI result Body Mass Index 23.6 General: Well-appearing well-nourished in no signs of distress HEENT: Normocephalic atraumatic Neck: No signs of JVD, no masses no tenderness or lymphadenopathy Cardiovascular: Regular rate and rhythm Respiratory: Clear to auscultation bilaterally Abdomen: Soft nontender no masses Extremities: Normal pedal pulses no signs of edema Skin: Dry warm no rashes Back: No tenderness full ROM Course Course Course Narrative: This is a Rapid Medical Exam performed in triage by Barb Daniel PA-C. Full HPI, ROS and PE to be performed by primary ED provider. 23 year-old M w/ no sig PMHx presenting to the ED c/o CP, WEST, sore throat, SOB, cough s/p cleaning with a lot of bleach yesterday. reports decrease PO intake and fatigue/anorexia PE: lungs CTA, oropharynx wnl. febrile 101 in triage. low suspicion for severe sepsis, likely viral etiology Plan: EKG, Labs, CXR, viral testing Medications Administered Discontinued Medications Generic Name Dose Route Start Last Admin Trade Name Freq PRN Reason Stop Dose Admin Ibuprofen 600 mg 05/09/24 16:06 05/09/24 16:17 Ibuprofen 600 Mg Tablet PO 05/09/24 16:07 600 mg ONCE ONE Administration Medical Decision Making Medical Decision Making [facility] Narrative: X-ray is normal labs were unremarkable patient did have a positive COVID swab and triage I do not think this patient has high-risk he is not qualify for Paxlovid treatment I will give the patient Tico Cleary have the patient follow up with his doctor I did give Tylenol ibuprofen here. Differential Diagnosis Differential Diagnoses: The differential diagnosis associated with the presentation includes COVID flu RSV pneumonia Lab Data 05/09/24 16:29 05/09/24 16:29 Labs: Lab Results 05/09/24 Range/Units 16:29 WBC 5.8 (4.8-10.8) X10*3/uL RBC 4.00 L (4.60-5.80) X10*6/uL Hgb 12.6 L (14.0-18.0) g/dl Hct 36.8 L (42.0-52.0) % MCV 92.0 (80.0-98.0) fL MCH 31.5 (27.0-33.0) pg MCHC 34.2 (31.0-36.0) g/dl RDW 13.2 (11.0-16.0) % Plt Count 168 (160-400) X10*3/uL MPV 9.8 (9.4-12.4) fL Immature Gran % (Auto) 0.3 (0.0-0.4) % Neut % (Auto) 76.5 H (45-73) % Lymph % (Auto) 9.3 L (20-40) % [place] % (Auto) 12.5 H (2-11) % Eos % (Auto) 0.9 (0-4) % Baso % (Auto) 0.5 (0-2) % Lymph # (Auto) 0.5 L (1.2-4.9) X10*3/uL [place] # (Auto) 0.7 (0.1-1.2) X10*3/uL Eos # (Auto) 0.1 (0.0-0.4) X10*3/uL Baso # (Auto) 0.0 (0.0-0.2) X10*3/uL Abs Immat Gran (auto) 0.02 (0.00-0.03) X10*3/uL Absolute Neuts (auto) 4.5 (2.0-8.3) x10*3/uL Absolute Nucleated RBC 0.000 (0.0-0.012) X10*3/uL Nucleated RBC % (auto) 0.0 (0.0-0.2) /100WBC Sodium 138 (135-145) mmol/L Potassium 3.6 (3.3-5.1) mmol/L Chloride 102 (96-108) mmol/L Carbon Dioxide 27 (22-29) mmol/L Anion Gap 13 (12-20) BUN 10 (9-16) mg/dL Creatinine 1.32 (0.5-1.4) mg/dL Estim Creat Clear Calc 85.5 Estimated GFR > 60 Random Glucose 113 (60-115) mg/dL Calcium 9.4 (8.4-10.2) mg/dL Magnesium 1.8 (1.6-2.6) mg/dL Total Bilirubin 0.5 (0.0-1.0) mg/dL Direct Bilirubin 0.2 (0.0-0.5) mg/dL AST 21 (5-37) U/L ALT 19 (0-40) U/L Alkaline Phosphatase 68 (39-117) U/L Troponin I High Sens < 2.7 (<3.5-35.0) ng/L Total Protein 7.5 (6.5-8.0) g/dL Albumin 4.5 (3.5-5.0) g/dL Influenza Type A (PCR) NEGATIVE (Negative) Influenza Type B (PCR) NEGATIVE (Negative) RSV RNA Qual (PCR) NEGATIVE (Negative) SARS-CoV-2 RNA (RT-PCR) POSITIVE A (Negative) S. pyogenes GrpA SAUL Negative (Negative) Discharge Plan Discharge Clinical Impression: COVID-19 Patient Disposition: Home, Self-Care Instructions: COVID-19 (Coronavirus Disease 2019) (ED) Additional Instructions: You were seen in the emergency department for cough and cold symptoms and were found to be positive for COVID. You were given Tylenol ibuprofen and a medication for your cough called Tico Cleary. Please call follow up with her doctor if you have worsening fever please do not hesitate to return to the emergency department. Prescriptions: New acetaminophen [Tylenol] 325 mg tablet 325 mg PO QID PRN (Reason: pain) Qty: 90 0RF benzonatate 100 mg capsule 100 mg PO BID PRN (Reason: cough) Qty: 20 0RF ibuprofen 400 mg tablet 400 mg PO Q6H PRN (Reason: Pain) Qty: 60 0RF No Action cyclobenzaprine 10 mg tablet 10 mg PO TID PRN (Reason: muscle spasm) 7 Days Qty: 21 0RF cephalexin 500 mg capsule 500 mg PO Q6H 7 Days Qty: 28 0RF doxycycline hyclate 100 mg capsule 100 mg PO BID 10 Days Qty: 20 0RF Referrals: [facility] [Primary Care Provider] - (Please call follow up for the COVID if you have worsening fever worsening shortness breath or any other concerns please return to the emergency department.) Stand Alone Forms: Work/School Release Print Language: Kyrgyz
[2024-05-09] MEDS: Ibuprofen 600 MG TABLET PO (16:17)
[2024-05-09 16:36] LABS: MANUAL DIFF FLAG NO
[2024-05-09 16:39] LABS: Basophils Percent Auto 0.5 % (0-2); Eosinophils Absolute Auto 0.1 X10*3/uL (0.0-0.4); Eosinophils Percent Auto 0.9 % (0-4); Hematocrit 36.8 % (42.0-52.0); Hemoglobin 12.6 g/dl (14.0-18.0); Imm Gran Abs Auto 0.02 X10*3/uL (0.00-0.03); Imm Gran Pct Auto 0.3 % (0.0-0.4); Lymphocytes Absolute Auto 0.5 X10*3/uL (1.2-4.9); Lymphocytes Percent Auto 9.3 % (20-40); Mean Corpuscular HGB Conc 34.2 g/dl (31.0-36.0); Mean Corpuscular Hemoglobin 31.5 pg (27.0-33.0); Mean Platelet Volume 9.8 fL (9.4-12.4); Monocytes Absolute Auto 0.7 X10*3/uL (0.1-1.2); Monocytes Percent Auto 12.5 % (2-11); Neutrophils Absolute Auto 4.5 x10*3/uL (2.0-8.3); Neutrophils Percent Auto 76.5 % (45-73); Platelet Count 168 X10*3/uL (160-400); Red Cell Distribution Width 13.2 % (11.0-16.0); White Blood Count 5.8 X10*3/uL (4.8-10.8)
[2024-05-09 16:50] LABS: IDNOW Serial# 08D9AD1C; Strep A Nucleic Acid Negative (Negative)
[2024-05-09 16:56] LABS: Alanine Aminotransferase 19 U/L (0-40); Albumin Level 4.5 g/dL (3.5-5.0); Alkaline Phosphatase 68 U/L (39-117); Anion Gap 13 (12-20); Aspartate Amino Transferase 21 U/L (5-37); Bilirubin Direct 0.2 mg/dL (0.0-0.5); Bilirubin Total 0.5 mg/dL (0.0-1.0); Blood Urea Nitrogen 10 mg/dL (9-16); Calcium 9.4 mg/dL (8.4-10.2); Carbon Dioxide 27 mmol/L (22-29); Chloride 102 mmol/L (96-108); Creatinine Clr Calc Pharmacy 85.5; Estimated Glomerular Filt Rate > 60; Glucose Random 113 mg/dL (60-115); Magnesium 1.8 mg/dL (1.6-2.6); Potassium 3.6 mmol/L (3.3-5.1); Sodium 138 mmol/L (135-145); Total Protein 7.5 g/dL (6.5-8.0)
[2024-05-09 17:05] LABS: Troponin-I High Sensitivity < 2.7 ng/L (<3.5-35.0)
[2024-05-09 17:19] LABS: Influenza A PCR NEGATIVE (Negative); Influenza B PCR NEGATIVE (Negative); Resp Syncy Virus RNA Qual PCR NEGATIVE (Negative); SARS COV2 PCR INHOUSE POSITIVE (Negative)
[2024-05-09 17:38] VITALS: BP 105/48; PULSE 88; RESP 14; TEMP 37.5; O2SAT 98
[2024-05-09] MEDS: Ibuprofen 400 MG TABLET PO (17:47)
[2024-05-09] MEDS: Benzonatate 100 MG CAPSULE PO (17:48)
[2024-05-09] MEDS: Acetaminophen 325 MG TABLET 650 MG PO (17:48)
[2024-05-09 17:50] VITALS: BP 105/48; PULSE 88; RESP 14; TEMP 37.5; O2SAT 98
== END 2024-05-09 17:51 | disposition home or self-care (01) ==
PROVIDERS: Physician Assistant; Emergency Provider Student in an Organized Health Care Education/Training Program
DX: U07.1 COVID-19 (principal); R10.13 Epigastric pain; M79.10 Myalgia, unspecified site; Z79.899 Other long term (current) drug therapy
CPT/HCPCS: 0241U; 36415; 71046; 80048; 80076; 83735; 84484; 85025; 87651; 93005; 99283; 99284

== ENCOUNTER → 2024-05-09 16:01 | Outpatient (BNV) | payer SELFPAY | PROVIDERS: Emergency Provider Student in an Organized Health Care Education/Training Program; Visit Provider Internal Medicine Cardiovascular Disease | DX: R10.13 Epigastric pain (principal) | CPT/HCPCS: 93010 ==

== ENCOUNTER 2024-05-16 06:31 | Emergency (ER) | payer OTHER, SELFPAY ==
--- NOTE | 2024-05-16 | ECG_ITS ---
Test Reason : dyspnea Blood Pressure : / mmHG Vent. Rate : 056 BPM Atrial Rate : 056 BPM P-R Int : 200 ms QRS Dur : 106 ms QT Int : 434 ms P-R-T Axes : 072 057 044 degrees QTc Int : 418 ms Sinus bradycardia Early Repolarization Borderline ECG When compared with ECG of 09-MAY-2024 16:18, Vent. rate has decreased BY 35 BPM Referred By: Generic ED Physician Electronically Signed By:SUZANNA MELARA
--- NOTE | ~2024-05-16 | XR_ITS ---
EXAMINATION: XR CHEST CLINICAL INFORMATION: Dyspnea. COMPARISON: 05/09/2024 TECHNIQUE: 2 views of the chest were obtained. FINDINGS: The lungs are well expanded. No focal consolidation. No pleural effusion. Cardiac silhouette is within normal limits. XR/XR chest 2V IMPRESSION: No acute abnormality.
[2024-05-16 06:34] VITALS: BP 88/45; PULSE 56; RESP 20; TEMP 36.1; O2SAT 99; BMI 22.1
--- NOTE | 2024-05-16 06:46 | ED.GENADULT ---
HPI - General Adult General Chief complaint: Dyspnea Stated complaint: SOB, headache Time Seen by Provider: 05/16/24 06:46 Source: patient and family Mode of arrival: ambulatory Limitations: no limitations History of Present Illness ED Provider: farzana TRAN narrative: Patient is a 23-year-old male presenting to the emergency department with complaint of headache, shortness of breath and chest tightness since waking this morning. He was seen here last week and tested positive for Covid. He reports 3-4 days of symptoms, then 3-4 days of feeling better. States he has been eating and drinking normally. Denies any nausea, vomiting or diarrhea. MD complaint: shortness of breath Onset (ago): hour(s) Location: head Associated symptoms: headaches and weakness Treatments prior to arrival: none Related Data Previous Rx's ?Medication ?Instructions ?Recorded cyclobenzaprine 10 mg tablet 10 mg PO TID PRN muscle spasm 7 02/08/22 days #21 tabs cephalexin 500 mg capsule 500 mg PO Q6H 7 days #28 caps 04/25/22 doxycycline hyclate 100 mg capsule 100 mg PO BID 10 days #20 caps 04/29/22 acetaminophen 325 mg tablet 325 mg PO QID PRN pain #90 tabs 05/09/24 (Tylenol) benzonatate 100 mg capsule 100 mg PO BID PRN cough #20 caps 05/09/24 ibuprofen 400 mg tablet 400 mg PO Q6H PRN Pain #60 tabs 05/09/24 Allergies Allergy/AdvReac Type Severity Reaction Status Date / Time No Known Drug Allergies Allergy Mild NONE Verified 05/16/24 06:36 [NO KNOWN DRUG ALLERGIES] Review of Systems Review of Systems: As per HPI. Yes all other systems are reviewed and are negative Constitutional: Constitutional: Reports as per HPI [facility] Past Medical History Medical History Acute insomnia Social History Social History Alcohol intake: never Patient Tobacco Use Status: Never used Tobacco Smoked in Last 30 Days: No Use of substances other than those prescribed or required for medical reasons: No Advance Directives: No Advance Directives Information Provided: Yes Do you have a plan to hurt others: No Plan Physical Exam ED Vital Signs: Vital Signs - 24 hr 05/16/24 06:34 08/14/24 07:51 05/16/24 09:48 Temperature 97.0 F 97.8 F Pulse Rate 56 52 52 Respiratory Rate 20 19 16 Blood Pressure 88/45 L 100/58 L 90/47 L Pulse Oximetry 99 98 100 Oxygen Delivery Method Room Air Room Air Room Air BMI result Body Mass Index 22.1 Vital signs have been reviewed and appear to be correct. Blood pressure low. Heart rate normal. Respiratory rate normal. Temperature normal. Oxygen saturation normal. Const General: cooperative, healthy appearing and no acute distress Orientation/consciousness: oriented to person, oriented to place, oriented to time and patient oriented x3 Limitations: no limitations HENMT Head: Yes normocephalic and Yes atraumatic Ears: external ears normal General nose exam: Normal external nose present Face and sinus: Yes face symmetric Mouth: oropharynx normal and moist mucous membranes Throat: Yes uvula midline Eyes Pupils: Equal, round and reactive pupils present Neck Neck: Yes normal visual inspection and Yes supple Resp Effort & Inspection: normal respiratory effort and able to speak in complete sentences Auscultation: clear to auscultation bilaterally Cardio Rate: regular rate Rhythm: regular rhythm Heart sounds: S1 normal heart sound present and S2 normal heart sound present GI Palpation (GI): Soft to palpation and nontender Auscultation: normoactive bowel sounds General: Yes no CVA tenderness Back/Spine/Pelvis Back: no CVA tenderness Skin General skin exam: elasticity normal and turgor normal Neuro General: oriented to person, oriented to place, oriented to time, patient oriented x3, moves all extremities, no focal motor deficits and CN's II-XI intact bilaterally Cranial nerves: Yes Equal, round and reactive pupils present Cognition (Neuro): normal cognition Extrem General: Yes full ROM, Yes no pedal edema and Yes no calf tenderness Psych Mental Status: mental status grossly normal Affect: normal affect Thought process: Normal thought process present Medications Administered Discontinued Medications Generic Name Dose Route Start Last Admin Trade Name Freq PRN Reason Stop Dose Admin Sodium Chloride 1,000 mls @ 999 mls/hr 05/16/24 07:00 05/16/24 06:55 Ns IV 05/16/24 08:00 999 mls/hr .Q1H1M SYLVIE Administration Ketorolac Tromethamine 15 mg 05/16/24 08:24 05/16/24 09:49 Ketorolac Tromethamine 15 Mg/Ml Vial IVPUSH 05/16/24 08:25 15 mg ONCE ONE Administration Medical Decision Making Medical Decision Making [facility] Narrative: Patient is a 23-year-old male presenting to the emergency department with complaint of headache, shortness of breath and chest tightness since waking this morning. On exam patient is awake, A+Ox3, VS WNL, afebrile, normal neurological exam without focal deficits, physical exam findings as above. Given reported symptoms and physical exam findings, initial differential includes ongoing Covid symptoms, secondary viral illness, dehydration, electrolyte abnormality. Unlikely ACS. EKG shows sinus bradycardia. Labs unremarkable, troponin negative. X-ray notable for no evidence of pneumonia. My interpretation is in agreement with the radiologist's interpretation. Feel symptoms likely due to known Covid infection. Advised patient to ensure adequate rest, adequate fluid intake of fluids with electrolytes (not soda). Tylenol and ibuprofen as needed for fever or discomfort. Follow-up with PCP. Return precautions discussed. Patient verbalized understanding of and agreement with plan. Differential Diagnosis Differential Diagnoses: The differential diagnosis associated with the presentation includes As per [facility] Lab Data [facility] Lab Attestation statement: I reviewed the patient's lab results. As per [facility] 05/16/24 06:53 05/16/24 08:00 Labs: Lab Results 05/16/24 05/16/24 05/16/24 Range/Units 06:53 08:00 08:01 WBC 4.6 L (4.8-10.8) X10*3/uL RBC 4.13 L (4.60-5.80) X10*6/uL Hgb 13.1 L (14.0-18.0) g/dl Hct 37.9 L (42.0-52.0) % MCV 91.8 (80.0-98.0) fL MCH 31.7 (27.0-33.0) pg MCHC 34.6 (31.0-36.0) g/dl RDW 12.7 (11.0-16.0) % Plt Count 216 D (160-400) X10*3/uL MPV 9.9 (9.4-12.4) fL Immature Gran % (Auto) 0.2 (0.0-0.4) % Neut % (Auto) 34.1 L (45-73) % Lymph % (Auto) 50.5 H (20-40) % [place] % (Auto) 9.5 (2-11) % Eos % (Auto) 5.3 H (0-4) % Baso % (Auto) 0.4 (0-2) % Lymph # (Auto) 2.3 (1.2-4.9) X10*3/uL [place] # (Auto) 0.4 (0.1-1.2) X10*3/uL Eos # (Auto) 0.2 (0.0-0.4) X10*3/uL Baso # (Auto) 0.0 (0.0-0.2) X10*3/uL Abs Immat Gran (auto) 0.01 (0.00-0.03) X10*3/uL Absolute Neuts (auto) 1.6 L (2.0-8.3) x10*3/uL Absolute Nucleated RBC 0.000 (0.0-0.012) X10*3/uL Nucleated RBC % (auto) 0.0 (0.0-0.2) /100WBC PT 14.0 H (11.1-13.3) SEC INR 1.2 H (0.9-1.1) Sodium 140 (135-145) mmol/L Potassium 4.4 D (3.3-5.1) mmol/L Chloride 109 H (96-108) mmol/L Carbon Dioxide 25 (22-29) mmol/L Anion Gap 10 L (12-20) BUN 10 (9-16) mg/dL Creatinine 1.10 (0.5-1.4) mg/dL Estim Creat Clear Calc 98.7 Estimated GFR > 60 Random Glucose 108 (60-115) mg/dL Calcium 8.5 D (8.4-10.2) mg/dL Total Bilirubin 0.6 (0.0-1.0) mg/dL AST 16 (5-37) U/L ALT 16 (0-40) U/L Alkaline Phosphatase 53 (39-117) U/L Troponin I High Sens < 2.7 (<3.5-35.0) ng/L Total Protein 6.4 L (6.5-8.0) g/dL Albumin 3.9 (3.5-5.0) g/dL Influenza Type A (PCR) NEGATIVE (Negative) Influenza Type B (PCR) NEGATIVE (Negative) RSV RNA Qual (PCR) NEGATIVE (Negative) SARS-CoV-2 RNA (RT-PCR) POSITIVE A (Negative) Independent Interpretation I performed an independent interpretation of an: EKG (sinus bradycardia, rate 56bpm, normal SC interval and QTc) and Plain X-Ray Interpretation: No evidence of pneumonia on chest xray Radiology Impression Discussion of test interpretation with radiology: I have reviewed the radiologist's reading. Radiologist Impression: XR/XR chest 2V IMPRESSION: No acute abnormality. External Record Review External record reviewed: Inpatient record, Office record and Outpatient record Discharge Plan Discharge Clinical Impression: COVID-19 Patient Disposition: Home, Self-Care Instructions: COVID-19 (Coronavirus Disease 2019) (ED) Additional Instructions: You were evaluated in the emergency department today for headache and shortness of breath. This is likely due to your recent Covid infection. You should be sure to get adequate rest and drink plenty of fluids with electrolytes (not soda). You can use Tylenol or ibuprofen per package directions for fever or discomfort. Return to the emergency department with worsening shortness of breath, chest pain, fever that does not improve with Tylenol or ibuprofen, persistent vomiting, or any other concerning symptoms. You should follow-up with your primary care provider. Prescriptions: No Action cyclobenzaprine 10 mg tablet 10 mg PO TID PRN (Reason: muscle spasm) 7 Days Qty: 21 0RF cephalexin 500 mg capsule 500 mg PO Q6H 7 Days Qty: 28 0RF doxycycline hyclate 100 mg capsule 100 mg PO BID 10 Days Qty: 20 0RF acetaminophen [Tylenol] 325 mg tablet 325 mg PO QID PRN (Reason: pain) Qty: 90 0RF benzonatate 100 mg capsule 100 mg PO BID PRN (Reason: cough) Qty: 20 0RF ibuprofen 400 mg tablet 400 mg PO Q6H PRN (Reason: Pain) Qty: 60 0RF Referrals: Allison Franklin MD [Primary Care Provider] - 1 Week Stand Alone Forms: Work/School Release Print Language: Danish
[2024-05-16] MEDS: 0.9 % Sodium Chloride 1,000 ML 999 ML IV (06:55)
[2024-05-16 07:00] LABS: MANUAL DIFF FLAG NO
[2024-05-16 07:02] LABS: Basophils Percent Auto 0.4 % (0-2); Eosinophils Absolute Auto 0.2 X10*3/uL (0.0-0.4); Eosinophils Percent Auto 5.3 % (0-4); Hematocrit 37.9 % (42.0-52.0); Hemoglobin 13.1 g/dl (14.0-18.0); Imm Gran Abs Auto 0.01 X10*3/uL (0.00-0.03); Imm Gran Pct Auto 0.2 % (0.0-0.4); Lymphocytes Absolute Auto 2.3 X10*3/uL (1.2-4.9); Lymphocytes Percent Auto 50.5 % (20-40); Mean Corpuscular HGB Conc 34.6 g/dl (31.0-36.0); Mean Corpuscular Hemoglobin 31.7 pg (27.0-33.0); Mean Corpuscular Volume 91.8 fL (80.0-98.0); Mean Platelet Volume 9.9 fL (9.4-12.4); Monocytes Absolute Auto 0.4 X10*3/uL (0.1-1.2); Monocytes Percent Auto 9.5 % (2-11); Neutrophils Absolute Auto 1.6 x10*3/uL (2.0-8.3); Neutrophils Percent Auto 34.1 % (45-73); Platelet Count 216 X10*3/uL (160-400); Red Blood Count 4.13 X10*6/uL (4.60-5.80); Red Cell Distribution Width 12.7 % (11.0-16.0); White Blood Count 4.6 X10*3/uL (4.8-10.8)
[2024-05-16 07:12] LABS: INTERNATIONAL NORM RATIO 1.2 (0.9-1.1)
[2024-05-16 07:24] LABS: Troponin-I High Sensitivity < 2.7 ng/L (<3.5-35.0)
[2024-05-16 07:51] VITALS: BP 100/58; PULSE 52; RESP 19; O2SAT 98
[2024-05-16 08:21] LABS: Alanine Aminotransferase 16 U/L (0-40); Albumin Level 3.9 g/dL (3.5-5.0); Alkaline Phosphatase 53 U/L (39-117); Anion Gap 10 (12-20); Aspartate Amino Transferase 16 U/L (5-37); Bilirubin Total 0.6 mg/dL (0.0-1.0); Blood Urea Nitrogen 10 mg/dL (9-16); Calcium 8.5 mg/dL (8.4-10.2); Carbon Dioxide 25 mmol/L (22-29); Chloride 109 mmol/L (96-108); Creatinine Clr Calc Pharmacy 98.7; Estimated Glomerular Filt Rate > 60; Glucose Random 108 mg/dL (60-115); Potassium 4.4 mmol/L (3.3-5.1); Sodium 140 mmol/L (135-145); Total Protein 6.4 g/dL (6.5-8.0)
[2024-05-16 08:44] LABS: Influenza A PCR NEGATIVE (Negative); Influenza B PCR NEGATIVE (Negative); Resp Syncy Virus RNA Qual PCR NEGATIVE (Negative); SARS COV2 PCR INHOUSE POSITIVE (Negative)
[2024-05-16 09:48] VITALS: BP 90/47; PULSE 52; RESP 16; TEMP 36.6; O2SAT 100
[2024-05-16] MEDS: Ketorolac Tromethamine 15 MG/ML VIAL IVPUSH (09:49)
[2024-05-16 10:40] VITALS: BP 95/56; PULSE 50; RESP 17; TEMP 36.6; O2SAT 98
== END 2024-05-16 10:41 | disposition home or self-care (01) ==
PROVIDERS: Registered Nurse Emergency; Emergency Provider Emergency Medicine; PCP Student in an Organized Health Care Education/Training Program
DX: U07.1 COVID-19 (principal); R06.02 Shortness of breath; R51.9 Headache, unspecified; R07.89 Other chest pain; Z79.899 Other long term (current) drug therapy
CPT/HCPCS: 0241U; 36415; 71046; 80053; 84484; 85025; 85610; 93005; 96374; 99284; 99285; J1885

== ENCOUNTER → 2024-05-16 07:04 | Outpatient (BNV) | payer OTHER, SELFPAY | PROVIDERS: Emergency Provider Emergency Medicine; PCP Student in an Organized Health Care Education/Training Program; Visit Provider Internal Medicine | DX: R06.00 Dyspnea, unspecified (principal) | CPT/HCPCS: 93010 ==

== ENCOUNTER → 2024-10-11 11:39 | Outpatient (BNV) | payer OTHER, SELFPAY | PROVIDERS: PCP Student in an Organized Health Care Education/Training Program; Visit Provider Radiology Diagnostic Radiology | DX: R10.10 Upper abdominal pain, unspecified (principal) | CPT/HCPCS: 74018 ==

== ENCOUNTER → 2024-10-11 11:39 | Outpatient (BNV) | payer OTHER, SELFPAY | PROVIDERS: PCP Student in an Organized Health Care Education/Training Program; Visit Provider Internal Medicine | DX: R42 Dizziness and giddiness (principal) | CPT/HCPCS: 93010 ==